=== PATIENT | female | born 1965 | race Caucasian/White ===

== ENCOUNTER 2017-04-23 22:00 | Emergency (ER) | payer OTHER ==
--- NOTE | 2017-04-23 23:29 | DIAGNOSTIC IMAGING REPORT ---
PROCEDURE: CT HEAD WITHOUT CONTRAST INDICATION: TRAUMA/INJURY TECHNIQUE: Noncontrast axial images with sagittal and coronal reformations. COMPARISON: None. FINDINGS: Moderate extracranial soft tissue swelling over the left frontal bone. No evidence of skull fracture. Brain and ventricles are normal. No evidence of an acute process or hemorrhage. Sinuses and mastoids are normal. IMPRESSION: 1. Moderate extracranial soft tissue swelling and injury over the left frontal bone. 2. Otherwise negative head CT. No evidence of intracranial injury. 3. Findings discussed with SELINA Lopez at [address] scans at this facility use dose modulation, iterative reconstruction, and/or weight-based dosing when appropriate to reduce radiation dose to as low as reasonably achievable.
--- NOTE | 2017-04-23 23:35 | DIAGNOSTIC IMAGING REPORT ---
PROCEDURE: CT CERVICAL SPINE W/O CONTRAST INDICATION: PAIN TECHNIQUE: Noncontrast axial images with sagittal and coronal reformations. COMPARISON: None. FINDINGS: There are moderate multilevel degenerative changes of the cervical spine with mildly to moderately chronically bulging disc and facet disease. Findings superimposed on mild congenital narrowing of. Straightening of cyst and reversal of cervical lordosis. No evidence of an acute process or fracture. Alignment is normal. IMPRESSION: 1. 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 2. Straightening and reversal of cervical lordosis compatible degenerative changes cervical spasm. 3. No evidence of an acute process or fracture. 4. Findings discussed with SELINA Lopez. All CT scans at this facility use dose modulation, iterative reconstruction, and/or weight-based dosing when appropriate to reduce radiation dose to as low as reasonably achievable.
--- NOTE | 2017-04-24 00:15 | DIAGNOSTIC IMAGING REPORT ---
PROCEDURE: XR CHEST 1 VIEW INDICATION: TRAUMA TECHNIQUE: AP view (1145 hours). COMPARISON: None. FINDINGS: Lungs are clear. Heart and mediastinum are normal. Mild generalized levoscoliosis. IMPRESSION: 1. Mild levoscoliosis. 2. Otherwise negative chest.
--- NOTE | 2017-04-24 00:16 | DIAGNOSTIC IMAGING REPORT ---
PROCEDURE: XR THORACIC SPINE 3 VIEWS INDICATION: TRAUMA/INJURY TECHNIQUE: Three views. COMPARISON: None. FINDINGS: Mild generalized levoscoliosis (10 degrees). There mild to multilevel degenerative changes with peripheral osteophytes. There is no evidence of acute process or fracture. IMPRESSION: 1. Mild levoscoliosis and degenerative changes of the thoracic spine.
--- NOTE | 2017-04-24 00:16 | DIAGNOSTIC IMAGING REPORT ---
PROCEDURE: XR KNEE 4 VIEWS - LEFT INDICATION: TRAUMA/INJURY TECHNIQUE: Four views. COMPARISON: None. FINDINGS: Osseous structures joint spaces are normal with small degenerative spur of the patella. No evidence of fracture. IMPRESSION: 1. Negative left knee.
--- NOTE | 2017-04-24 00:21 | DIAGNOSTIC IMAGING REPORT ---
PROCEDURE: XR ANKLE 3 OR 4 VIEWS - LEFT INDICATION: TRAUMA/INJURY TECHNIQUE: Four views. COMPARISON: None. FINDINGS: Old healed fracture of the left distal fibular shaft with mild residual deformity. The rest the osseous structures and joint spaces are normal. IMPRESSION: 1. Old healed fracture of the left distal fibular shaft. 2. Negative left ankle.
--- NOTE | 2017-04-24 00:32 | DIAGNOSTIC IMAGING REPORT ---
PROCEDURE: XR WRIST MIN 3 VIEWS - B/L INDICATION: TRAUMA/INJURY TECHNIQUE: Five views of each wrist. COMPARISON: None. FINDINGS: RIGHT WRIST: There is a moderately impacted acute fracture of the right fifth metacarpal neck with mild dorsal apical angulation Status post open reduction internal fixation of right distal radius fracture, transfixed with a side plate multiple screws. The rest the osseous structures and joint spaces are normal. LEFT WRIST: There is an old healed fracture of the left distal radius with mild residual deformity. The rest of the osseous structures and joint spaces are normal. If an occult scaphoid fracture suspected clinically, follow-up radiographs of the wrists in 10-14 days may be of assistance in evaluating. IMPRESSION: 1. There is a mildly impacted acute fracture of the right fifth metacarpal neck. 2. Status post open reduction internal fixation of old healed right distal radius fracture. 3. Old healed fracture of the left distal radius with mild residual deformity. 4. Findings discussed with PAC. John
--- NOTE | 2017-04-24 00:35 | ED ORDER SUMMARY ---
..... Patient: ALEX BERGERON OrderSheet [facility] VisitID: [id number] [address] [place] [address] 51y, F Registration Date/Time: 04/23/2017 ORDER SHEET Weight: 74.8 kg (stated) Allergies: GENERAL ORDERS: Chest 2V Urgent (22:04/23/2017 EKoroleva P.A.-C) (Cancelled: Other22:13 EKoroleva P.A.-C) Lpn Rn (Continuous) (22:04/23/2017 EKoroleva P.A.-C) (Ack 22:31 RCollier R.N.) (0:36 RCollier R.N.) CT Head wo Cont Urgent (22:04/23/2017 EKoroleva P.A.-C) (Ack 22:17 CHategekimana) (0:12 GUnger) CT Cervical Spine wo Cont Urgent (22:04/23/2017 EKoroleva P.A.-C) (Ack 22:17 CHategekimana) (0:12 GUnger) Wrist 3 or 4V Bilat Urgent (22:04/23/2017 EKoroleva P.A.-C) (Ack 22:17 CH[facility]gekimana) (0:12 GUnger) Ankle 3 or 4V Left Urgent (22:04/23/2017 EKoroleva P.A.-C) (Ack 22:17 CHategekimana) (0:12 GUnger) CBC w Diff Urgent (22:04/23/2017 EKoroleva P.A.-C) (Ack 22:16 CHategekimana) (0:36 RCollier R.N.) CMP Urgent (22:04/23/2017 EKoroleva P.A.-C) (Ack 22:16 CHategekimana) (0:36 RCollier R.N.) UA-Culture if indicated Urgent (22:04/23/2017 EKoroleva P.A.-C) (Ack 22:16 [facility]) Urine Urgent (22:04/23/2017 EKoroleva P.A.-C) (Ack 22:17 [facility]) Urine Drug Screen Urgent (22:09 04/23/2017 EKoroleva P.A.-C) (Ack 22:17 [facility]) Ethyl Alcohol Urgent (22:04/23/2017 EKoroleva P.A.-C) (Ack 22:17 [facility] (0:36 RCollier R.N.) NPO (22:09 04/23/2017 EKoroleva P.A.-C) (Ack 22:31 RCollier R.N.) (0:36 RCollier R.N.) Thoracic Spine 3V Urgent (22:04/23/2017 EKoroleva P.A.-C) ([facility]ck 22:17 [facility]) (0:12 G[facility]) Chest 1V Urgent (22:04/23/2017 EKoroleva P.A.-C) (Ack 22:17 [facility]) (0:12 GUnger) Knee 4V Left Urgent (22:04/23/2017 EKoroleva P.A.-C) (Ack 22:17 [facility]) (0:12 [facility]) Splint (UE) (Right) (ulnar gutter) (00:40 04/24/2017 EKoroleva P.A.-C) (0:41 RCollier R.N.) MEDICATION ORDERS: Tdap IM 0.5 mL (NOW, per protocol) (22:04/23/2017 EKoroleva P.A.-C) (Ack 22:20 RCollier R.N.) (22:35 KKnebel R.N.) IV FLUIDS: IV Saline Lock (22:09 04/23/2017 EKoroleva P.A.-C) (Ack 22:20 RCollier R.N.) (22:35 KKnebel R.N.) Dilaudid IV 0.5 mg (HIGH ALERT MEDICATION, NOW) (22:12 04/23/2017 EKoroleva P.A.-C) (Ack 22:20 RCollier R.N.) (22:34 KKnebel R.N.) Zofran IV 4 mg (NOW) (22:12 04/23/2017 To P.A.-C) (Ack 22:20 Momo Barbosa.N.) (22:33 Coby Barbosa.N.) Dilaudid IV 1 mg (HIGH ALERT MEDICATION, NOW) (23:58 04/23/2017 To P.A.-C) (Ack 23:59 Momo Stephenson.) (0:08 Satish Stephenson.) ORDER SHEET NOTES: [Electronically signed by Eva Giordano P.A.-C (13:44 04/24/2017)] [Electronically signed by Marii Flower R.N. (04:31 04/25/2017)] [Electronically locked/signed by Marii Flower R.N. (04:31 04/25/2017)]
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
--- NOTE | 2017-04-24 00:35 | ED ORDER SUMMARY ---
..... Patient: ALEX BERGERON OrderSheet [facility] VisitID: [id number] [address] [place] [address] 51y, F Registration Date/Time: 04/23/2017 ORDER SHEET Weight: 74.8 kg (stated) Allergies: GENERAL ORDERS: Chest 2V Urgent (22:04/23/2017 EKoroleva P.A.-C) (Cancelled: Other22:13 EKoroleva P.A.-C) Orthotic/Prosthetic Practitioner (Continuous) (22:04/23/2017 EKoroleva P.A.-C) (Ack 22:31 RCollier R.N.) (0:36 RCollier R.N.) CT Head wo Cont Urgent (22:04/23/2017 EKoroleva P.A.-C) (Ack 22:17 CHategekimana) (0:12 GUnger) CT Cervical Spine wo Cont Urgent (22:04/23/2017 EKoroleva P.A.-C) (Ack 22:17 CH[facility]gekimana) (0:12 GUnger) Wrist 3 or 4V Bilat Urgent (22:04/23/2017 EKoroleva P.A.-C) (Ack 22:17 [facility]) (0:12 GUnger) Ankle 3 or 4V Left Urgent (22:04/23/2017 EKoroleva P.A.-C) (Ack 22:17 CHategekimana) (0:12 GUnger) CBC w Diff Urgent (22:04/23/2017 EKoroleva P.A.-C) (Ack 22:16 CHategekimana) (0:36 RCollier R.N.) CMP Urgent (22:04/23/2017 EKoroleva P.A.-C) (Ack 22:16 CHategekimana) (0:36 RCollier R.N.) UA-Culture if indicated Urgent (22:04/23/2017 EKoroleva P.A.-C) (Ack 22:16 [facility]) Urine Urgent (22:04/23/2017 EKoroleva P.A.-C) (Ack 22:17 [facility]) Urine Drug Screen Urgent (22:09 04/23/2017 EKoroleva P.A.-C) (Ack 22:17 [facility] Ethyl Alcohol Urgent (22:04/23/2017 EKoroleva P.A.-C) (Ack 22:17 [facility] (0:36 RCollier R.N.) NPO (22:09 04/23/2017 EKoroleva P.A.-C) (Ack 22:31 RCollier R.N.) (0:36 RCollier R.N.) Thoracic Spine 3V Urgent (22:04/23/2017 EKoroleva P.A.-C) (Ack 22:17 [facility] (0:12 GUnger) Chest 1V Urgent (22:04/23/2017 EKoroleva P.A.-C) (Ack 22:17 [facility] (0:12 GUnger) Knee 4V Left Urgent (22:04/23/2017 EKoroleva P.A.-C) (Ack 22:17 [facility]) (0:12 GUnger) Splint (UE) (Right) (ulnar gutter) (00:40 04/24/2017 EKoroleva P.A.-C) (0:41 RCollier R.N.) MEDICATION ORDERS: Tdap IM 0.5 mL (NOW, per protocol) (22:04/23/2017 EKoroleva P.A.-C) (Ack 22:20 RCollier R.N.) (22:35 KKnebel R.N.) IV FLUIDS: IV Saline Lock (22:09 04/23/2017 EKoroleva P.A.-C) (Ack 22:20 RCollier R.N.) (22:35 KKnebel R.N.) Dilaudid IV 0.5 mg (HIGH ALERT MEDICATION, NOW) (22:12 04/23/2017 EKoroleva P.A.-C) (Ack 22:20 RCollier R.N.) (22:34 KKnebel R.N.) Zofran IV 4 mg (NOW) (22:12 04/23/2017 To P.A.-C) (Ack 22:20 Momo Barbosa.N.) (22:33 Coby Barbosa.N.) Dilaudid IV 1 mg (HIGH ALERT MEDICATION, NOW) (23:58 04/23/2017 To P.A.-C) (Ack 23:59 Momo Stephenson.) (0:08 Satish Stephenson.) ORDER SHEET NOTES: [Electronically signed by Eva Giordano P.A.-C (13:44 04/24/2017)] [Electronically signed by Marii Flower R.N. (04:31 04/25/2017)] [Electronically locked/signed by Marii Flower R.N. (04:31 04/25/2017)]
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
--- NOTE | 2017-04-25 04:31 | ED MED RECONCILIATION SUMMARY ---
Patient: ALEX BERGERON Medication Reconciliation Report [facility] VisitID: [id number] [address] [place] [address] 51y, F Registration Date/Time: 04/23/2017 Weight: 74.8 kg Height/Length: 65 in. BMI: 27.5 ALLERGIES: The patient's Home Medications are listed below: Not obtained. The source(s) of the original Home Medication information: Not obtained. The following Medications were given to the patient in the Emergency Department: Zofran [IVP] IVP 4 mg, administered: 04/23/2017 10:28:00 PM Dilaudid [IVP] IVP 0.5 mg, administered: 04/23/2017 10:34:00 PM TDAP [IM] IM 0.5 mL, administered: 04/23/2017 10:35:00 PM Dilaudid [IVP] IVP 1 mg, administered: 04/24/2017 12:07:00 AM The following Medications were prescribed to the patient: Cephalexin 500 mg: take 1 capsule orally for 10 days. No refill. -- Eva Giordano, P.A.-C Oxycodone/APAP 5 mg/325 mg: take 1 tablet orally every 6 hours as needed for pain. Dispense twenty-five (25). No refill. -- Eva Giordano, P.A.-C
--- NOTE | 2017-04-25 04:31 | ED MAR SUMMARY ---
..... Medication Administration Record [facility] [address] [place] [address] Patient: ALEX BERGERON Visit ID: [id number] 51y, F Weight: 74.8 kg Height/Length: 65 in BMI: 27.5 ALLERGIES: Given 22:28 04/23/2017 Darby Morales R.N. Medication Administered: ZOFRAN [IVP] (ONDANSETRON HCL), Dose: 4 mg IVP over 2 minute(s), Site: #1 right AC. Medication Ordered: Zofran IV 4 mg (NOW). Given 22:34 04/23/2017 Darby Morales R.N. Medication Administered: DILAUDID [IVP] (HYDROMORPHONE HCL PF), Dose: 0.5 mg IVP over 2 minute(s), Site: #1 right AC. Medication Ordered: Dilaudid IV 0.5 mg (HIGH ALERT MEDICATION, NOW). Given 22:35 04/23/2017 Darby Morales R.N. Medication Administered: TDAP [IM], Dose: 0.5 mL IM. Medication Ordered: Tdap IM 0.5 mL (NOW, per protocol). Given 00:07 04/24/2017 Kera Taylor R.N. Medication Administered: DILAUDID [IVP] (HYDROMORPHONE HCL PF), Dose: 1 mg IVP over 2 minute(s), Site: #1 right AC. Medication Ordered: Dilaudid IV 1 mg (HIGH ALERT MEDICATION, NOW).
--- NOTE | 2017-04-25 04:31 | ED MAR SUMMARY ---
..... Medication Administration Record [facility] [address] [place] [address] Patient: ALEX BERGERON Visit ID: [id number] 51y, F Weight: 74.8 kg Height/Length: 65 in BMI: 27.5 ALLERGIES: Given 22:28 04/23/2017 Darby Morales R.N. Medication Administered: ZOFRAN [IVP] (ONDANSETRON HCL), Dose: 4 mg IVP over 2 minute(s), Site: #1 right AC. Medication Ordered: Zofran IV 4 mg (NOW). Given 22:34 04/23/2017 Darby Morales R.N. Medication Administered: DILAUDID [IVP] (HYDROMORPHONE HCL PF), Dose: 0.5 mg IVP over 2 minute(s), Site: #1 right AC. Medication Ordered: Dilaudid IV 0.5 mg (HIGH ALERT MEDICATION, NOW). Given 22:35 04/23/2017 Darby Morales R.N. Medication Administered: TDAP [IM], Dose: 0.5 mL IM. Medication Ordered: Tdap IM 0.5 mL (NOW, per protocol). Given 00:07 04/24/2017 Kera Taylor R.N. Medication Administered: DILAUDID [IVP] (HYDROMORPHONE HCL PF), Dose: 1 mg IVP over 2 minute(s), Site: #1 right AC. Medication Ordered: Dilaudid IV 1 mg (HIGH ALERT MEDICATION, NOW).
--- NOTE | 2017-04-25 04:31 | ED MED RECONCILIATION SUMMARY ---
Patient: ALEX BERGERON Medication Reconciliation Report [facility] VisitID: [id number] [address] [place] [address] 51y, F Registration Date/Time: 04/23/2017 Weight: 74.8 kg Height/Length: 65 in. BMI: 27.5 ALLERGIES: The patient's Home Medications are listed below: Not obtained. The source(s) of the original Home Medication information: Not obtained. The following Medications were given to the patient in the Emergency Department: Zofran [IVP] IVP 4 mg, administered: 04/23/2017 10:28:00 PM Dilaudid [IVP] IVP 0.5 mg, administered: 04/23/2017 10:34:00 PM TDAP [IM] IM 0.5 mL, administered: 04/23/2017 10:35:00 PM Dilaudid [IVP] IVP 1 mg, administered: 04/24/2017 12:07:00 AM The following Medications were prescribed to the patient: Cephalexin 500 mg: take 1 capsule orally for 10 days. No refill. -- Eva Giordano, P.A.-C Oxycodone/APAP 5 mg/325 mg: take 1 tablet orally every 6 hours as needed for pain. Dispense twenty-five (25). No refill. -- Eva Giordano, P.A.-C
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
== END 2017-04-23 22:20 | disposition home or self-care (01) ==
LOC: ED SRH 22:00
DX: S62.336A Displaced fracture of neck of fifth metacarpal bone, right hand, initial encounter for closed fracture (principal); S81.012A Laceration without foreign body, left knee, initial encounter; S16.1XXA Strain of muscle, fascia and tendon at neck level, initial encounter; S80.212A Abrasion, left knee, initial encounter; S80.211A Abrasion, right knee, initial encounter; S00.83XA Contusion of other part of head, initial encounter; V28.1XXA Motorcycle passenger injured in noncollision transport accident in nontraffic accident, initial encounter